=== PATIENT | female | born 1985 | race Caucasian/White ===

== ENCOUNTER 2019-11-14 01:24 | Emergency (ER) | payer BC ==
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
[2019-11-14] MEDS ORDERED: DIPHENHYDRAMINE 50 MG/ML VIAL ONE (01:54)
[2019-11-14] MEDS ORDERED: ONDANSETRON 4 MG/2 ML VIAL ONE (01:55)
[2019-11-14] MEDS ORDERED: KETOROLAC 30 MG/ML INJ ONE (01:55)
--- NOTE | 2019-11-14 03:06 | ER ---
Nurse's Notes [facility] Name: Ludmila Cahmorro Age: 34 yrs Sex: Female : 1985 Arrival Date: 11/14/2019 Time: 01:25 Bed 20 Private MD: Diagnosis: Migraine without aura, not intractable Presentation: 11/13 01:38 Chief complaint: Patient states: Hx of migraines, woke up yesterday with a headache wh that lasted the whole day. Took some medicine and went to sleep, woke up an hour ago still with headache that is getting worse. Coronavirus screen: Client denies travel out of the [place] in the last 14 days. At this time, the client does not indicate any symptoms associated with coronavirus-19. Ebola Screen: Patient negative for fever greater than or equal to 101.5 degrees Fahrenheit, and additional compatible Ebola Virus Disease symptoms Patient denies exposure to infectious person. Initial Sepsis Screen: Does the patient meet any 2 criteria? No. Patient's initial sepsis screen is negative. Does the patient have a suspected source of infection? No. Patient's initial sepsis screen is negative. Risk Assessment: Do you want to hurt yourself or someone else? Patient reports no desire to harm self or others. Onset of symptoms was November 14, 2019. 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 - Social history:: Smoking status: Patient/guardian denies using. Screenin:40 Abuse screen: Denies threats or abuse. Denies injuries from another. Nutritional screening: No deficits noted. Tuberculosis screening: No symptoms or risk factors identified. Fall Risk None identified. 01:42 VAN Screening: Arm Drift: Patient shows no arm weakness. Visual Disturbance: No visual wh disturbance noted. Aphasia: No aphasia noted. Neglect: No neglect noted. Assessment: 01:40 General: Appears in no apparent distress. Behavior is calm, cooperative, appropriate wh for age. Pain: Complains of pain in Migraine headache. Neuro: Level of Consciousness is awake, alert, obeys commands, Oriented to person, place, time, situation, Appropriate for age Um Rn are equal bilaterally Moves all extremities. Gait is steady, Speech is normal, Facial symmetry appears normal, Pupils are PERRLA, Reports headache since yesterday. Cardiovascular: Heart tones S1 S2. Respiratory: Airway is patent Respiratory effort is even, unlabored, Respiratory pattern is regular, symmetrical, Breath sounds are clear bilaterally. GI: Abdomen is flat, non-distended. : No signs and/or symptoms were reported regarding the genitourinary system. EENT: No signs and/or symptoms were reported regarding the EENT system. Derm: Skin is intact, is healthy with good turgor, Skin is pink, warm \T\ dry. normal. Musculoskeletal: Circulation, motion, and sensation intact. 03:05 Reassessment: Patient appears in no apparent distress at this time. No changes from previously documented assessment. Patient and/or family updated on plan of care and expected duration. Pain level reassessed. Patient is alert, oriented x 3, equal unlabored respirations, skin warm/dry/pink. Patient states feeling better. Patient states symptoms have improved. Vital Signs: 01:38 BP 128 / 78; Pulse 68; Resp 18; Temp 98.8; Pulse Ox 100% ; Weight 99.79 kg; Height 5 wh ft. 7 in. (170.18 cm); 03:05 BP 108 / 68; Pulse 48; Resp 16; Pulse Ox 100% on R/A; wh 01:38 Body Mass Index 34.46 (99.79 kg, 170.18 cm) [place] Coma Score: 11/14 00:56 Eye Response: spontaneous(4). Verbal Response: oriented(5). Motor Response: obeys tw4 commands(6). Total: 15. NIH Stroke Scale Scores: 11/13 01:42 NIHSS Score: 0 wh ED Course: : Patient arrived in ED. cl3 01:29 Will Grijalva is Primary Nurse. wh 01:30 Breezy Klein MD is Attending Physician. tw4 01:40 Triage completed. wh 01:41 Arm band placed on right wrist. wh 01:42 Patient has correct armband on for positive identification. Placed in gown. Bed in low wh position. Call light in reach. Side rails up X 1. Pulse ox on. NIBP on. 01:50 Inserted saline lock: 20 gauge in right antecubital area, using aseptic technique. Blood collected. 03:16 No provider procedures requiring assistance completed. IV discontinued, intact, bleeding controlled, No redness/swelling at site. Administered Medications: 01:52 Drug: TORadol 30 mg Route: IVP; Site: right antecubital; 03:06 Follow up: Response: No adverse reaction; Pain is decreased 01:54 Drug: Benadryl 25 mg Route: IVP; Site: right antecubital; 03:06 Follow up: Response: No adverse reaction 01:56 Drug: Zofran (Ondansetron) 4 mg Route: IVP; Site: right antecubital; 03:06 Follow up: Response: No adverse reaction Outcome: 03:05 Discharge ordered by . tw4 03:16 Discharged to home ambulatory. 03:16 Condition: stable 03:16 Discharge instructions given to patient, Instructed on discharge instructions, follow up and referral plans. medication usage, POC Demonstrated understanding of instructions, follow-up care, medications, POC Prescriptions given X 2. 03:18 Patient left the ED. NIH Stroke Scale - NIH Stroke Score Date: 11/14/2019 Time: 01:42 Total Score = 0 1a. Level of Consciousness (LOC) - 0(Alert) 1b. Level of Consciousness (LOC) (Year \T\ Age) - 0(Both) 1c. LOC Commands (Open \T\ Closes Eyes/Medical Reimbursement Manager) - 0(Both) 2. Best Gaze (Lateral Gaze Paresis) - 0(Normal) 3. Visual Field Loss - 0(No visual loss) 4. Facial Palsy - 0(Normal) 5a. Left Arm: Motor (10-second hold) - 0(No drift) 5b. Right Arm: Motor (10-second hold) - 0(No drift) 6a. Left Leg: Motor (5-second hold - always test supine) - 0(No drift) 6b. Right Leg: Motor (5-second hold - always test supine) - 0(No drift) 7. Limb Ataxia (finger/nose \T\ heel/joe - test with eyes open) - 0(Absent) 8. Sensory Loss (pinprick arms/legs/face) - 0(Normal) 9. Best Language: Aphasia (description/naming/reading) - 0(No aphasia) 10. Dysarthria (speech clarity - read or repeat words) - 0(Normal) 11. Extinction and Inattention (visual/tactile/auditory/spatial/personal) - 0(No abnormality) Initials: wh Signatures: Will Grijalva Terrence, MD MD tw4 Jaiden Nichole cl3 Corrections: (The following items were deleted from the chart) 03:16 03:05 Reassessment: Patient appears in no apparent distress at this time. No wh changes from previously documented assessment. Patient and/or family updated on plan of care and expected duration. Pain level reassessed. Patient is alert, oriented x 3, equal unlabored respirations, skin warm/dry/pink. wh
--- NOTE | 2019-11-14 03:06 | EDPHYS ---
Physician Documentation [facility] Name: Ludmila Chamorro Age: 34 yrs Sex: Female : 1985 Arrival Date: 11/14/2019 Time: 01:25 Bed 20 Private MD: ED Physician Breezy Klein HPI: 11/14 00:56 This 34 yrs old Female presents to ER via Ambulatory with complaints of tw4 Migraine. 00:56 The patient complains of pain to the forehead and left eye. The patient describes the tw4 headache as aching. Onset: The symptoms/episode began/occurred today. Associated signs and symptoms: The patient has no apparent associated signs or symptoms. Severity of symptoms: At its worst the pain was moderate, in the emergency department the pain is unchanged. Headache History: The patient has had previous headaches and this one is similar to previous episodes. The symptoms are alleviated by nothing. the symptoms are aggravated by nothing. The patient has not experienced similar symptoms in the past. 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 - Social history:: Smoking status: Patient/guardian denies using. ROS: 11/14 00:56 Constitutional: Negative for fever, chills, and weight loss, Eyes: Negative for injury, tw4 pain, redness, and discharge, Cardiovascular: Negative for chest pain, palpitations, and edema, Respiratory: Negative for shortness of breath, cough, wheezing, and pleuritic chest pain, Abdomen/GI: Negative for abdominal pain, nausea, vomiting, diarrhea, and constipation, Back: Negative for injury and pain, MS/Extremity: Negative for injury and deformity, Skin: Negative for injury, rash, and discoloration. Neuro: Positive for headache, Negative for altered mental status, dizziness, gait disturbance, hearing loss, loss of consciousness, numbness, seizure activity, speech changes. Exam: 00:56 Constitutional: This is a well developed, well nourished patient who is awake, alert, tw4 and in no acute distress. Head/Face: Normocephalic, atraumatic. Chest/axilla: Normal chest wall appearance and motion. Nontender with no deformity. No lesions are appreciated. Cardiovascular: Regular rate and rhythm with a normal S1 and S2. No gallops, murmurs, or rubs. Normal PMI, no JVD. No pulse deficits. Respiratory: Lungs have equal breath sounds bilaterally, clear to auscultation and percussion. No rales, rhonchi or wheezes noted. No increased work of breathing, no retractions or nasal flaring. Abdomen/GI: Soft, non-tender, with normal bowel sounds. No distension or tympany. No guarding or rebound. No evidence of tenderness throughout. Back: No spinal tenderness. No costovertebral tenderness. Full range of motion. Skin: Warm, dry with normal turgor. Normal color with no rashes, no lesions, and no evidence of cellulitis. MS/ Extremity: Pulses equal, no cyanosis. Neurovascular intact. Full, normal range of motion. Neuro: Awake and alert, GCS 15, oriented to person, place, time, and situation. Cranial nerves II-XII grossly intact. Motor strength 5/5 in all extremities. Sensory grossly intact. Cerebellar exam normal. Normal gait. Vital Signs: 11/13 01:38 BP 128 / 78; Pulse 68; Resp 18; Temp 98.8; Pulse Ox 100% ; Weight 99.79 kg; Height 5 wh ft. 7 in. (170.18 cm); 03:05 BP 108 / 68; Pulse 48; Resp 16; Pulse Ox 100% on R/A; wh 01:38 Body Mass Index 34.46 (99.79 kg, 170.18 cm) NIH Stroke Scale Scores: 01:42 NIHSS Score: 0 [place] Coma Score: 11/14 00:56 Eye Response: spontaneous(4). Verbal Response: oriented(5). Motor Response: obeys tw4 commands(6). Total: 15. MDM: 11/13 03:05 Patient medically screened. tw4 11/14 00:56 Data reviewed: vital signs, nurses notes. Data interpreted: Pulse oximetry: tw4 Interpretation: normal. Counseling: I had a detailed discussion with the patient and/or guardian regarding: the historical points, exam findings, and any diagnostic results supporting the discharge/admit diagnosis. Medication response: Toradol relieved patient's pain. The symptoms have resolved. Response to treatment: and as a result, I will discharge patient. Special discussion: I discussed with the patient/guardian in detail that at this point there is no indication for admission to the hospital. It is understood, however, that if the symptoms persist or worsen the patient needs to return immediately for re-evaluation. Administered Medications: 11/13 01:52 Drug: TORadol 30 mg Route: IVP; Site: right antecubital; 03:06 Follow up: Response: No adverse reaction; Pain is decreased 01:54 Drug: Benadryl 25 mg Route: IVP; Site: right antecubital; 03:06 Follow up: Response: No adverse reaction 01:56 Drug: Zofran (Ondansetron) 4 mg Route: IVP; Site: right antecubital; 03:06 Follow up: Response: No adverse reaction Disposition: 11/14/19 03:05 Discharged to Home. Impression: Migraine without aura, not intractable. - Condition is Stable. - Discharge Instructions: Migraine Headache. - Prescriptions for Fiorinal 50- 325-40 mg Oral Capsule - take 1 capsule by ORAL route every 4 hours As needed - not to exceed 6 capsules per day; 20 capsule. Zofran 4 mg Oral Tablet - take 1 tablet by ORAL route every 12 hours As needed; 6 tablet. - Medication Reconciliation Form, Thank You Letter, Antibiotic Education, Prescription Opioid Use form. - Follow up: Private Physician; When: Upon discharge from the Emergency Department; Reason: Recheck today's complaints, Continuance of care, Re-evaluation by your physician. - Problem is new. - Symptoms have improved. NIH Stroke Scale - NIH Stroke Score Date: 11/14/2019 Time: 01:42 Total Score = 0 1a. Level of Consciousness (LOC) - 0(Alert) 1b. Level of Consciousness (LOC) (Year \T\ Age) - 0(Both) 1c. LOC Commands (Open \T\ Closes Eyes/Dairy Clerk) - 0(Both) 2. Best Gaze (Lateral Gaze Paresis) - 0(Normal) 3. Visual Field Loss - 0(No visual loss) 4. Facial Palsy - 0(Normal) 5a. Left Arm: Motor (10-second hold) - 0(No drift) 5b. Right Arm: Motor (10-second hold) - 0(No drift) 6a. Left Leg: Motor (5-second hold - always test supine) - 0(No drift) 6b. Right Leg: Motor (5-second hold - always test supine) - 0(No drift) 7. Limb Ataxia (finger/nose \T\ heel/joe - test with eyes open) - 0(Absent) 8. Sensory Loss (pinprick arms/legs/face) - 0(Normal) 9. Best Language: Aphasia (description/naming/reading) - 0(No aphasia) 10. Dysarthria (speech clarity - read or repeat words) - 0(Normal) 11. Extinction and Inattention (visual/tactile/auditory/spatial/personal) - 0(No abnormality) Initials: wh Signatures: Will Grijalva Terrence, MD RICH tw4 Corrections: (The following items were deleted from the chart) 03:18 03:05 11/14/2019 03:05 Discharged to Home. Impression: Migraine without aura, wh not intractable. Condition is Stable. Forms are Medication Reconciliation Form, Thank You Letter, Antibiotic Education, Prescription Opioid Use. Follow up: Private Physician; When: Upon discharge from the Emergency Department; Reason: Recheck today's complaints, Continuance of care, Re-evaluation by your physician. Problem is new. Symptoms have improved. tw4
[2019-11-14 03:26] VITALS: TEMP 98.8; O2SAT 100
[2019-11-14 03:27] VITALS: BP 108/68
== END 2019-11-14 03:18 | disposition home or self-care (01) ==
LOC: ER 01:24
DX: G43.009 Migraine without aura, not intractable, without status migrainosus (principal)
CPT/HCPCS: J1200; J2405; 96374; 96375; 99284